=== PATIENT | female | born 1965 | race Caucasian/White ===

== ENCOUNTER 2016-08-05 05:20 | Emergency (ER) | payer BC ==
[2016-08-05] MEDS ORDERED: HYDROmorphone 1 MG/ML Syringe IVPUSH ONE (05:34)
[2016-08-05] MEDS ORDERED: Ketorolac 30 MG/ML SDV IVPUSH ONE (05:34)
[2016-08-05] MEDS ORDERED: Sodium Chloride 0.9% 1,000 ML IV ONE ×2 (05:34→09:09)
[2016-08-05] MEDS ORDERED: Ondansetron 4 MG/2 ML SDV IVPUSH ONE ×2 (05:35→06:12)
[2016-08-05 05:58] LABS: CHLORIDE,CL 103 mEq/L (98-106); SODIUM,NA 140 mEq/L (136-145)
[2016-08-05] MEDS ORDERED: Morphine 2 MG/ML Syringe IVPUSH ONE ×2 (06:12→08:16)
[2016-08-05] MEDS ORDERED: cefTRIAXone 1 GM Vial IV ONE (06:20)
[2016-08-05] MEDS ORDERED: Sodium Chloride 0.9% 1,000 ML IV SCH (07:15)
[2016-08-05 07:25] VITALS: BP 127/72
[2016-08-05] MEDS ORDERED: Tamsulosin 0.4 MG Cap.ER PO ONE (09:10)
[2016-08-05] MEDS ORDERED: Morphine 4 MG/ML Syringe IVPUSH PRN (09:21)
--- NOTE | 2016-08-05 12:33 | EDM.PDOC ---
ED HPI RENAL/ - General Chief Complaint: Abdominal Pain Stated Complaint: kidney stone Time Seen by Provider: 08/05/16 05:48 Source of Information: Reports: Patient History Limitations: Reports: No limitations - History of Present Illness INITIAL COMMENTS - FREE TEXT/NARRATIVE: my General medical History and physical: History of present illness: [Patient comes to the emergency room accompanied by her . She complains of right low back and abdominal pain since 3 AM. She's had an aching to her right low back for the past 4 days but became significantly worse during the night. The pain is now constant sharp ache. Rates 8/10. She is feeling nauseated and has had a couple episodes of vomiting. She describes the pain as radiating from her back around to her right abdomen. Has had a decreased appetite for the past one day. She has had some urinary urgency and frequency but admits that she's been pushing fluids for the past several days due to her pain. Denies blood in her urine and burning with urination. She's taken some Tylenol and ibuprofen without any improvement in her symptoms. Took a dose of it so this morning as she was concerned she may be developing a urinary tract infection. Denies recent illness and infection. She does not have any chronic medical illnesses. Has had no sore throat, chest pain, shortness of breath, difficulty breathing, or cough. No constipation or diarrhea. No body aches. Denies swelling in her feet and lower legs.] Review of Systems: As per history of present illness and below otherwise all systems reviewed and negative. Past medical history: As per history of present illness and as reviewed below otherwise noncontributory. Surgical history: As per history of present illness and is reviewed below other lowery noncontributory. Social history: No reported history of drug or alcohol abuse. Family history: As per history of present illness and is reviewed below otherwise noncontributory. Physical exam: HEENT: Atraumatic, normocephalic. Oral mucous membranes are mildly dry. Throat is clear. Neck supple no lymphadenopathy. Lungs: Clear to auscultation, breath sounds equal bilaterally Heart: S1-S2, regular rate and rhythm. Abdomen: Bowel sounds are normal active throughout. She is tender over her right flank and right lower quadrant area. Abdomen is soft and nondistended. No masses. No guarding or rebound with palpation to right lower quadrant. No organomegaly. Pelvis: Stable, nontender. Genitourinary: Deferred. Rectal: Deferred. Extremities atraumatic, negative for cords or calf pain. Neurovascular unremarkable. No swelling or cyanosis to feet or lower legs. Neuro: Awake, alert, oriented. Motor and sensory unremarkable throughout. Exam nonfocal. Diagnostics: [CBC, CMP, urinalysis, amylase, urine culture, CRP, CT abdomen and pelvis without contrast] Therapeutics: [Zofran 4 mg IV x2, ketorolac 30 mg IV, Dilaudid 1 mg IV, morphine 2 mg IV x2, morphine 3 mg IV, Rocephin 1 g IV, Flomax 0.4 mg by mouth, normal saline IV x3 L] Impression: [Right kidney stone UTI] Plan: [Patient was kept as extended ER. She had no improvement in her pain with Dilaudid so she was given morphine. This improved her symptoms significantly. Nausea was well controlled with Zofran. White blood cell count 16.3. CRP less than 0.2. CMP was largely unremarkable. Urinalysis shows a large amount of blood and positive nitrates. Culture is pending. Discussed with patient risks versus benefits of doing a CT scan with and without contrast versus without contrast. Reviewed with her that her symptomatology is not consistent with appendicitis other than the elevated white blood cell count. Because she is nontender over her right lower quadrant, there is no guarding or rebound, and she is afebrile , she is in agreement with CT abdomen and pelvis without contrast. Results show a 4 mm stone at the right UV junction. Reviewed with her these findings. We also discussed strict followup precautions. Patient and verbalized understanding and agreement of this plan. She is treated in the ER with the above mentioned medications and sent home with prescriptions for the following: Zofran ODT 4 mg #20 sig: One sublingual every 6 hours as needed for nausea zero refills, ketorolac 10 mg #30 sig one by mouth every 6 hours zero refills, hydrocodone 5/ 325 mg #30 sig: One by mouth every 4-6 hours as needed for pain zero refills, Macrobid #14 sig: One by mouth twice a day zero refills, Flomax 0.4 mg #10 take one by mouth daily no refills. She is sent home with a strainer and encouraged to push fluids. She agrees to return to the emergency room if she develops a fever her pain is worsening or she has intractable vomiting, and as we discussed. All of her questions are answered and concerns are addressed. ] Definitive disposition and diagnosis is appropriate pending reevaluation and review of above. - Related Data Allergies/ADRs: Allergies Allergy/AdvReac Type Severity Reaction Status Date / Time No Known Allergies Allergy Verified 08/05/16 05:24 Home Meds: Home Meds Naproxen Sodium [Aleve] 660 mg PO ASDIRECTED PRN 08/05/16 [History] Phenazopyridine HCl [Azo Standard] 1 tab PO DAILY PRN 08/05/16 [History] Past Medical History Genitourinary History: Reports: Renal calculus Social & Family History - Tobacco Use Smoking Status *Q: Current Some Day Smoker Years of Tobacco use: 30 Packs/Tins Daily: 0.2 Tobacco Use Comment: USES ON WEEKENDS ONLY - Caffeine Use Caffeine Use: Reports: Coffee - Recreational Drug Use Recreational Drug Use: No ED ROS GENERAL - Review of Systems Review Of Systems: ROS reveals no pertinent complaints other than HPI. ED EXAM, RENAL/ - Physical Exam Exam: See Below Course - Vital Signs Last Recorded V/S: Last Vital Signs Temp 98.1 F 08/05/16 07:24 Pulse 74 08/05/16 07:24 Resp 16 08/05/16 07:24 BP 127/72 08/05/16 07:24 Pulse Ox 95 08/05/16 07:24 - Orders/Labs/Meds Orders: Active Orders 24 hr Category Date Time Status Abdomen Pelvis wo Cont [CT] Stat Exams 08/05/16 06:18 Taken CULTURE URINE [RM] Stat Lab 08/05/16 05:30 Received Morphine Med 08/05/16 09:21 Active 2 - 4 mg IVPUSH Q2H PRN Sodium Chloride 0.9% [Normal Saline] 1,000 ml Med 08/05/16 07:15 Active IV ASDIRECTED Medication Orders Sodium Chloride (Normal Saline) 1,000 mls @ 500 mls/hr IV ASDIRECTED NICKI Last Admin: 08/05/16 07:22 Dose: 500 mls/hr Morphine Sulfate (Morphine) 2 - 4 mg IVPUSH Q2H PRN PRN Reason: Pain Last Admin: 08/05/16 09:32 Dose: 4 mg Labs: Laboratory Tests 08/05/16 08/05/16 08/05/16 Range/Units 05:30 05:35 05:35 WBC 16.3 H (5.0-10.0) 10^3/uL RBC 4.35 (4.00-5.50) 10^6/uL Hgb 13.3 (12.0-16.0) g/dL Hct 39.3 (37.0-47.0) % MCV 90.3 (82.0-94.0) fL MCH 30.6 (27.0-32.0) pg MCHC 33.8 (33.0-38.0) g/dL RDW Coeff of Vlad 12.3 (11.0-15.0) % Plt Count 315 (150-400) 10^3/uL Neut % (Auto) 84.9 (35-85) % Lymph % (Auto) 9.3 L (10-55) % Jones % (Auto) 4.9 (0-16) % Eos % (Auto) 0.7 (0-5) % Baso % (Auto) 0.2 (0-3) % Neut # (Auto) 13.84 H (1.80-7.00) 10^3/uL Lymph # (Auto) 1.51 (1.00-4.80) 10^3/uL Jones # (Auto) 0.79 (0.00-0.80) 10^3/uL Eos # (Auto) 0.11 (0.00-0.45) 10^3/uL Baso # (Auto) 0.03 10^3/uL Sodium 140 (136-145) mEq/L Potassium 4.1 (3.5-5.0) mEq/L Chloride 103 (98-106) mEq/L Carbon Dioxide 26 (21-32) mmol/L BUN 16 D (7-18) mg/dL Creatinine 0.8 (0.6-1.0) mg/dL Est Cr Clr Drug Dosing 72.65 mL/min Estimated GFR (MDRD) > 60 (>=60) mL/min Glucose 132 H D (75-99) mg/dL Calcium 8.4 (8.4-10.1) mg/dL Total Bilirubin 0.3 (0.0-1.0) mg/dL AST 18 (15-37) U/L ALT 18 (12-78) U/L Alkaline Phosphatase 63 (46-116) U/L C-Reactive Protein < 0.2 L (0.2-0.8) mg/dL Total Protein 7.4 (6.4-8.2) g/dL Albumin 4.0 (3.4-5.0) g/dL Urine Color [place] (YELLOW) Urine Appearance Clear (CLEAR) Urine pH 6.0 (4.5-8.0) Ur Specific [place] 1.022 H (1.003-1.020) Urine Protein 100 H (NEGATIVE) mg/dL Urine Glucose (UA) 250 H (NEGATIVE) mg/dL Urine Ketones Negative (NEGATIVE) mg/dL Urine Occult Blood Large H (NEGATIVE) Urine Nitrite Positive H (NEGATIVE) Urine Bilirubin Small H (NEGATIVE) Urine Urobilinogen 2.0 H (0.2-1.0) EU/dL Ur Leukocyte Esterase Negative (NEGATIVE) Urine RBC 5-10 H (0-5) /HPF Urine WBC Not seen (0-5) /HPF Ur Epithelial Cells Moderate H (NOT SEEN) /HPF Urine Bacteria Occasional H (NOT SEEN) /HPF Urine Mucus Few H (NOT SEEN) /HPF Meds: Medications Generic Name Dose Route Start Last Admin Trade Name Freq PRN Reason Stop Dose Admin Sodium Chloride 1,000 mls @ 500 mls/hr 08/05/16 07:15 08/05/16 07:22 Normal Saline IV 500 mls/hr ASDIRECTED NICKI Administration Morphine Sulfate 2 - 4 mg 08/05/16 09:21 08/05/16 09:32 Morphine IVPUSH 4 mg Q2H PRN Administration Pain Discontinued Medications Generic Name Dose Route Start Last Admin Trade Name Freq PRN Reason Stop Dose Admin Ceftriaxone Sodium 1 gm 08/05/16 06:20 08/05/16 06:26 Rocephin IV 08/05/16 06:21 1 gm ONETIME ONE Administration Hydromorphone HCl 1 mg 08/05/16 05:34 08/05/16 06:19 Dilaudid IVPUSH 08/05/16 05:35 Not Given ONETIME ONE Sodium Chloride 1,000 mls @ 999 mls/hr 08/05/16 05:34 08/05/16 05:50 Normal Saline IV 08/05/16 06:34 999 mls/hr .BOLUS ONE Administration Sodium Chloride 1,000 mls @ 500 mls/hr 08/05/16 09:09 08/05/16 09:24 Normal Saline IV 08/05/16 11:08 500 mls/hr STAT ONE Administration Ketorolac Tromethamine 30 mg 08/05/16 05:34 08/05/16 05:44 Toradol IVPUSH 08/05/16 05:35 30 mg ONETIME ONE Administration Morphine Sulfate 2 mg 08/05/16 06:12 08/05/16 06:16 Morphine IVPUSH 08/05/16 06:13 2 mg ONETIME ONE Administration Morphine Sulfate 2 mg 08/05/16 08:16 08/05/16 08:20 Morphine IVPUSH 08/05/16 08:17 2 mg ONETIME ONE Administration Ondansetron HCl 4 mg 08/05/16 05:35 08/05/16 05:44 Zofran IVPUSH 08/05/16 05:36 4 mg STAT ONE Administration Ondansetron HCl 4 mg 08/05/16 06:12 08/05/16 12:19 Zofran IVPUSH 08/05/16 06:13 Not Given STAT ONE Tamsulosin HCl 0.4 mg 08/05/16 09:10 08/05/16 09:23 Flomax PO 08/05/16 09:11 0.4 mg ONETIME ONE Administration Departure - Departure Time of Disposition: 12:30 Disposition: Home, Self-Care 01 Condition: good Clinical Impression: Kidney stone on right side UTI (urinary tract infection) Qualifiers: Urinary tract infection type: site unspecified Hematuria presence: with hematuria Qualified Code(s): N39.0 - Urinary tract infection, site not specified Referrals: PCP,None [Primary Care Provider] - Forms: ED Department Discharge Additional Instructions: My general discharge The following information is given to patients seen in the emergency department who are being discharged home. This information is to outline your options for follow-up care and provides all patient seen in our emergency department with a follow-up referral. The need for follow-up, as well as the timing and circumstances, are variable depending upon the specifics of each emergency department visit. If you don't have a primary care physician on staff, we will provide you with a referral. We always advise to contact your personal physician following an emergency department visit to inform them of the circumstances of the visit and for follow-up with them and/or the need for any referrals to a consulting specialist. The emergency department will also refer you to a specialist when appropriate. This referral assures that you have the opportunity for follow-up care with a specialist. All of these measures are taken in an effort to provide you with optimal care, which includes your follow-up. Under all circumstances we always encourage you to contact your private physician who remains a resource for coordinating your care. When calling for follow-up care, please make the office aware that this follow-up is from your recent emergency room visit. If for any reason you are refused follow-up please contact the [facility] emergency department at and ask to speak to the emergency department nurse. [address] [address] Followup with your primary care provider at the clinic listed above in 48-72 hours. You are prescribed 5 medications. Take as prescribed. Zofran-take as needed for nausea Hydrocodone-take as needed for moderate to severe pain Macrobid-take twice daily as prescribed for uric UTI Ketorolac-take every 6 hours for pain Flomax-take one daily Push fluids and continue to strain urine. Return to the emergency room as needed as discussed. - My Orders Last 24 Hours: My Active Orders 08/05/16 05:30 CULTURE URINE [RM] Stat 08/05/16 06:18 Abdomen Pelvis wo Cont [CT] Stat 08/05/16 07:15 Sodium Chloride 0.9% [Normal Saline] 1,000 ml IV ASDIRECTED 08/05/16 09:21 Morphine 2 - 4 mg IVPUSH Q2H PRN - Assessment/Plan Last 24 Hours: My Active Orders 08/05/16 05:30 CULTURE URINE [RM] Stat 08/05/16 06:18 Abdomen Pelvis wo Cont [CT] Stat 08/05/16 07:15 Sodium Chloride 0.9% [Normal Saline] 1,000 ml IV ASDIRECTED 08/05/16 09:21 Morphine 2 - 4 mg IVPUSH Q2H PRN
== END 2016-08-05 12:35 | disposition home or self-care (01) ==
LOC: CC.ED 05:20
DX: N20.2 Calculus of kidney with calculus of ureter (principal); N39.0 Urinary tract infection, site not specified
CPT/HCPCS: 36415; 74176; 80053; 81001; 85025; 86140; 87086; 87088; 96365; 96366; 96375; 96376; 99284; A9270; J0696; J1885; J2270; J2405; J7030; 87186; 96361; 96374